=== PATIENT | male | born 1960 | race Caucasian/White ===

== ENCOUNTER 2016-12-01 11:11 | Outpatient (CLI) | payer OTHER | END 2016-12-01 11:12 | disposition home or self-care (01) | DX: I51.7 Cardiomegaly (principal); I77.810 Thoracic aortic ectasia; I48.91 Unspecified atrial fibrillation ==

== ENCOUNTER 2016-12-06 15:54 | Emergency (ER) | payer OTHER ==
[2016-12-06] MEDS ORDERED: TETANUS/DIPHTHERIA/PERTUSSIS 0.5 ML SYRINGE IM ONE ×3 (16:18→16:37)
== END 2016-12-06 18:00 | disposition home or self-care (01) ==
DX: S62.511A Displaced fracture of proximal phalanx of right thumb, initial encounter for closed fracture (principal); S60.311A Abrasion of right thumb, initial encounter; W23.1XXA Caught, crushed, jammed, or pinched between stationary objects, initial encounter; Z23 Encounter for immunization; I48.91 Unspecified atrial fibrillation; R03.0 Elevated blood-pressure reading, without diagnosis of hypertension

== ENCOUNTER 2019-03-12 17:12 | Outpatient (CLI) | payer OTHER | END 2019-03-12 17:13 | disposition home or self-care (01) | LOC: RT 17:12 | PROVIDERS: ATTEND Internal Medicine Cardiovascular Disease | DX: I48.0 Paroxysmal atrial fibrillation (principal) | CPT/HCPCS: 93005 ==

== ENCOUNTER 2019-03-26 17:52 | Outpatient (CLI) | payer OTHER | END 2019-03-26 17:53 | disposition home or self-care (01) | LOC: RT 17:52 | PROVIDERS: ATTEND Internal Medicine Cardiovascular Disease | DX: I48.91 Unspecified atrial fibrillation (principal) | CPT/HCPCS: 93005 ==

== ENCOUNTER 2019-06-24 19:54 | Outpatient (CLI) | payer OTHER ==
[2019-06-24 20:18] LABS: BASOPHILS # (AUTO) 0.1 10^3/uL (0.0-0.1); BASOPHILS % (AUTO) 0.6 %; EOSINOPHILS # (AUTO) 0.2 10^3/uL (0.0-0.7); EOSINOPHILS % (AUTO) 2.8 %; HGB - HEMOGLOBIN 13.9 g/dL (14.0-18.0); LYMPHOCYTES # (AUTO) 1.7 10^3/uL (1.5-3.5); LYMPHOCYTES % (AUTO) 21.3 %; MEAN CORPUSCULAR HGB CONC 32.9 g/dL (32.0-36.0); MEAN PLATELET VOLUME 10.5 fL (7.4-11.4); MONOCYTES # (AUTO) 0.7 10^3/uL (0.0-1.0); MONOCYTES % (AUTO) 9.4 %; NEUTROPHILS % (AUTO) 65.1 %; PLT - PLATELET COUNT 224 10^3/uL (130-450); RED BLOOD COUNT 4.49 10^6/uL (4.70-6.10); RED CELL DISTRIBUTION WIDTH 13.9 % (12.0-15.0); WHITE BLOOD COUNT 7.7 x10^3/uL (4.8-10.8)
[2019-06-24 20:24] LABS: CALCIUM 9.4 mg/dL (8.5-10.3); CREATININE 1.4 mg/dL (0.6-1.2)
[2019-06-24 20:28] LABS: INR 1.2 (0.8-1.2)
== END 2019-06-24 19:55 | disposition home or self-care (01) ==
LOC: LAB 19:54
DX: I48.19 Other persistent atrial fibrillation (principal)
CPT/HCPCS: 36415; 80048; 85025; 85610

== ENCOUNTER 2019-09-10 16:48 | Outpatient (CLI) | payer OTHER | END 2019-09-10 23:59 | disposition home or self-care (01) | LOC: RT 16:48 | PROVIDERS: ATTEND Internal Medicine | DX: I48.19 Other persistent atrial fibrillation (principal) | CPT/HCPCS: 93005 ==

== ENCOUNTER 2021-04-12 16:03 | Outpatient (CLI) | payer OTHER ==
--- NOTE | 2021-04-12 17:12 | XRAY Report ---
PROCEDURE: Knee 3 View RT INDICATIONS: RIGHT KNEE PAIN TECHNIQUE: 3 views of the right knee(s) were acquired. COMPARISON: None. FINDINGS: Bones: No fractures or dislocations. No suspicious bony lesions. Severe narrowing of the medial fe moral tibial joint and tricompartmental periarticular osteophyte formation. Soft tissues: Small joint effusion. No suspicious soft tissue calcifications. IMPRESSION: Tricompartmental knee joint degeneration, severe involving the medial femoral tibial natasha nt. Reviewed by: ROBERTO Cummings on 04/12/2021 5:11 PM PDT Approved by: Toño Thapa MD on 04/12/2021 5:11 PM PDT Station ID: [id number]
== END 2021-04-12 16:04 | disposition home or self-care (01) ==
LOC: DI 16:03
PROVIDERS: ATTEND Nurse Practitioner Family
DX: M17.11 Unilateral primary osteoarthritis, right knee (principal)

== ENCOUNTER 2021-07-09 15:09 | Outpatient (CLI) | payer OTHER ==
--- NOTE | 2021-07-13 07:27 | Ultrasound Report ---
PROCEDURE: Duplex Ext Veins Left INDICATIONS: ACUTE DVT OF LEFT LEG TECHNIQUE: Real-time imaging, as well as color and pulse Doppler interrogation, were performed of the lower extr emity deep veins from the inguinal ligament to the popliteal fossa. COMPARISON: None. FINDINGS thrombus is identified in the left superficial femoral vein, popliteal vein and deep calf ve ins. Knee joint effusion noted. Fluid collection noted in the popliteal fossa which may represent pop liteal cyst. IMPRESSION: Normal study demonstrating deep vein thrombosis involving the left lower extremity. Reviewed by: Karlee Lares MD, PhD on 07/13/2021 7:26 AM PDT Approved by: Karlee Lares MD, PhD on 07/13/2021 7:26 AM PDT Station ID: [id number]
== END 2021-07-09 15:10 | disposition home or self-care (01) ==
LOC: DI 15:09
PROVIDERS: ATTEND Nurse Practitioner Family
DX: I82.412 Acute embolism and thrombosis of left femoral vein (principal); I82.432 Acute embolism and thrombosis of left popliteal vein; I82.462 Acute embolism and thrombosis of left calf muscular vein

== ENCOUNTER 2021-08-02 10:46 | Outpatient (CLI) | payer OTHER ==
--- NOTE | 2021-08-02 11:20 | XRAY Report ---
PROCEDURE: Sinus Payan View INDICATIONS: ORBITS FOR FORIEGN BODY TECHNIQUE: 1 views of the sinuses were acquired. COMPARISON: None FINDINGS: Sinuses: The visualized sinuses demonstrate no air-fluid levels or mucosal thickening. The visualiz ed mastoids also appear clear. No radiodense foreign bodies identified in the preclude MRI. Bones: No suspicious bony lesions. Nasal septum is midline. IMPRESSION: No radiodense foreign bodies identified in the orbits that would preclude MRI. Reviewed by: Karlee Lraes MD, PhD on 08/02/2021 11:19 AM PST Approved by: Karlee Lares MD, PhD on 08/02/2021 11:19 AM PST Station ID: [id number]
--- NOTE | 2021-08-02 13:27 | MRI Report ---
PROCEDURE: Knee RT W/O INDICATIONS: RIGHT KNEE PAIN TECHNIQUE: Noncontrast sagittal PD fast spin echo and T2 fast spin echo with fat saturation, sagittal 3-D gradie nt sequence with fat saturation; coronal T1 spin echo and PD fast spin echo with fat saturation, and axial PD fast spin echo with fat saturation through the knee. COMPARISON: None. FINDINGS: Menisci: Medial meniscus: Circumferential diminutive and ill-defined appearance of the labrum. There is very l ittle remaining substance in the region of the body or anterior horn. There is also frayed appearance of the posterior horn. This likely combination of postsurgical changes and chronic degeneration. Lateral meniscus: Lateral meniscal signal change extending to the superior to the undersurface of the body and diminutive appearance of the anterior horn Cruciate ligaments: Anterior cruciate ligament: Not well seen Posterior cruciate ligament: Thinned appearance, with adjacent heterogeneous signal change Medial structures: Medial collateral ligament: Intact. Semimembranosus tendon: Insertional tendinopathy is present. Pes anserinus tendons: Intact Bursal fluid: Mild pes anserinus bursitis Lateral structures: Lateral collateral ligament appears grossly intact. Biceps femoris tendon appears intact. Iliotibial band within normal limits. Popliteus tendon within normal limits. Anterior structures: Mild patellar tendinopathy, with prepatellar and superficial infrapatellar edema. The quadriceps tendon appears intact. Medial and lateral patellofemoral ligaments appear grossly intact. Patellar alignment is normal. Hoffa's fat pad unremarkable. Bones and cartilage: Bones: No bone marrow contusions or fractures. Medial compartment: Full-thickness femoral and tibial cartilage loss. Subchondral marrow edema presen t in the tibia and femoral condyle Lateral compartment: Diffuse surface fraying of the femoral and tibial cartilage. Patellofemoral compartment: Diffuse surface fraying of the patellar and femoral trochlear cartilage. Joint space: Moderate joint effusion No Odom's cyst. Multiloculated ganglion cyst seen at the origin of the medial gastrocnemius. Possible 2 mm loose body in the posterior joint space although not well visualized on all pulse seque nces. IMPRESSION: Diminutive appearance of the medial meniscus in particular the body and anterior horn. This could be due to postsurgical change. Chronic degeneration of the posterior horn remnant. Suspect lateral meniscal tear involving the body and anterior horn although this could also be postsu rgical sequela recommend correlation to operative history. Rupture of the anterior cruciate ligament, technically age indeterminate and could be chronic. Sprain of the posterior cruciate ligament also likely chronic. Mild pes anserinus bursitis Severe joint degeneration with full-thickness articular cartilage loss in the medial compartment. Moderate joint effusion. Additional chronic and incidental findings as above. Reviewed by: Sung Beverly MD on 08/02/2021 1:25 PM PST Approved by: Sung Beverly MD on 08/02/2021 1:25 PM PST Station ID: [id number]
== END 2021-08-02 10:47 | disposition home or self-care (01) ==
LOC: DI 10:46
PROVIDERS: ATTEND Nurse Practitioner Family
DX: S83.511A Sprain of anterior cruciate ligament of right knee, initial encounter (principal); S83.521A Sprain of posterior cruciate ligament of right knee, initial encounter; M71.561 Other bursitis, not elsewhere classified, right knee; M17.11 Unilateral primary osteoarthritis, right knee; M25.461 Effusion, right knee; Z01.818 Encounter for other preprocedural examination

== ENCOUNTER 2021-09-04 18:57 | Outpatient (CLI) | payer OTHER ==
--- NOTE | 2021-09-04 21:15 | Ultrasound Report ---
PROCEDURE: Duplex Ext Veins Left INDICATIONS: LLE DVT TECHNIQUE: Real-time imaging, as well as color and pulse Doppler interrogation, were performed of the lower extr emity deep veins from the inguinal ligament to the popliteal fossa. COMPARISON: None. FINDINGS: There is a duplicated superficial femoral vein. There is nonocclusive thrombus demonstrated within on e of the superficial femoral veins extending from the proximal to distal segments. Nonocclusive filli ng defect also demonstrated within the popliteal vein. The calf veins were not well visualized. The c ommon femoral vein appears patent proximally. Within the posterior fossa, there is a heterogeneous hypoechoic collection suggestive of a complex Ba ker's cyst, measuring up to 2.9 x 1.2 x 2.1 cm. There is a suprapatellar joint effusion. IMPRESSION: 1. Nonocclusive deep venous thrombosis demonstrated within one of the duplicated superficial femoral veins as well as the popliteal vein. Reviewed by: Mark Marino MD on 09/04/2021 9:14 PM PST Approved by: Mark Marino MD on 09/04/2021 9:14 PM PST Station ID: [id number]
== END 2021-09-04 18:58 | disposition home or self-care (01) ==
LOC: DI 18:57
PROVIDERS: ATTEND Nurse Practitioner Family
DX: I82.412 Acute embolism and thrombosis of left femoral vein (principal); I82.432 Acute embolism and thrombosis of left popliteal vein

== ENCOUNTER 2023-08-28 09:29 | Outpatient (CLI) | payer OTHER ==
--- NOTE | 2023-08-29 10:12 | XRAY Report ---
PROCEDURE: Lumbar Spine 2 View INDICATIONS: UNSPECIFIED LOW BACK PAIN TECHNIQUE: 3 views of the lumbar spine were acquired. COMPARISON: None. FINDINGS: Bones: 5 [id number] vertebrae are present. There is normal bony alignment. No vertebral body compression fractures. No suspicious bony lesions. Moderate degenerative disc disease at L3-L4 and L4-L5, and mild degenerative disc disease at other levels. Moderate facet arthropathy at L3-L4, L4-L5 and L5-S1. Trace retrolisthesis of L1 on L2. Soft tissues: Overlying bowel gas pattern is normal. There is a calcific density in the right upper quadrant, suspicious for a gallstone IMPRESSION: 1. Moderate degenerative disc and facet disease in lumbar spine. 2. Question cholelithiasis. If there is right upper quadrant abdominal pain, consider abdominal ultra sound. Reviewed by: Mick Ortiz MD on 08/29/2023 10:11 AM PST Approved by: Mick Ortiz MD on 08/29/2023 10:11 AM PST Station ID: [id number]
== END 2023-08-28 23:59 | disposition home or self-care (01) ==
LOC: DI.N 09:29
PROVIDERS: ATTEND Nurse Practitioner
DX: M47.816 Spondylosis without myelopathy or radiculopathy, lumbar region (principal); M51.36 Other intervertebral disc degeneration, lumbar region; M47.817 Spondylosis without myelopathy or radiculopathy, lumbosacral region

== ENCOUNTER 2023-11-21 09:21 | Outpatient (CLI) | payer OTHER ==
--- NOTE | 2023-11-21 14:14 | MRI Report ---
PROCEDURE: Lumbar Spine WO INDICATIONS: SPONDYLITIS OF L SPINE TECHNIQUE: Noncontrast sagittal T1 spin echo and T2 fast echo, sagittal STIR, axial T1 and T2 fast spin echo thr ough the lumbar spine. In cases with scoliosis, additional coronal T2 fast spin echo may be performe d. COMPARISON: Lumbar spine plain films dated 08/28/2023. FINDINGS: Image quality: Excellent. Alignment and Curvature: There is normal bony alignment. Bone Marrow: Marrow is of normal overall signal. No acute vertebral body compression fractures. Spinal Cord: Conus medullaris terminates at the T12-L1 level. Visualized cord demonstrates normal s ignal and size. Paraspinous Soft Tissues: No paravertebral masses. T11-T12: No canal stenosis or foraminal stenosis. T12-L1: Normal in appearance. L1-L2: Disc bulge with mild superimposed left paracentral disc protrusion. Mild narrowing of the l eft side of the canal. Facet hypertrophy. No significant foraminal narrowing.. L2-L3: Mild chronic disc height loss. Diffuse disc bulge. Facet hypertrophy. Epidural lipomatosis. Mild to moderate canal stenosis. Mild right foraminal stenosis.. L3-L4: Chronic disc height loss. Posterior disc bulge with superimposed mild right paracentral disc protrusion. Facet and ligament hypertrophy. Epidural lipomatosis. Moderate to severe canal stenosis. Right paracentral disc protrusion impinges on the right L4 nerve root in the right lateral recess. M oderate right foraminal narrowing with mild flattening deformity on the exiting right L3 nerve root. L4-L5: Chronic disc height loss. Diffuse posterior disc bulge. Facet and ligament hypertrophy. Mild canal stenosis. Moderate right foraminal narrowing with flattening deformity on the exiting right L4 nerve root. Mild left foraminal narrowing. L5-S1: Disc bulge. Facet hypertrophy. No central canal stenosis. Mild to moderate right foraminal n arrowing. Left foraminal annulus tear plus disc bulge results in moderate to severe left foraminal na rrowing and a degree of left foraminal L5 nerve root impingement IMPRESSION: 1. There is underlying multilevel facet arthropathy. 2. Epidural lipomatosis contributes to canal stenosis at L3-L4. 3. Canal stenosis is as follows: There is mild narrowing of the left side of the canal at L1-L2. Ther e is mild to moderate canal stenosis at L2-L3. There is moderate to severe canal stenosis at L3-L4. T here is mild canal stenosis at L4-L5. 4. Multilevel foraminal narrowing as described above. Findings include severe left foraminal narrowin g at L5-S1 with a degree of left foraminal L5 nerve root impingement. Reviewed by: Jeancarlos Tan MD on 11/21/2023 2:13 PM PST Approved by: Jeancarlos Tan MD on 11/21/2023 2:13 PM PST Station ID: [id number]
== END 2023-11-21 09:22 | disposition home or self-care (01) ==
LOC: DI 09:21
PROVIDERS: ATTEND Physician Assistant Medical
DX: M47.816 Spondylosis without myelopathy or radiculopathy, lumbar region (principal); E88.2 Lipomatosis, not elsewhere classified; M48.061 Spinal stenosis, lumbar region without neurogenic claudication; M48.07 Spinal stenosis, lumbosacral region; M54.17 Radiculopathy, lumbosacral region